=== PATIENT | male | born 1960 | race Native Hawaiian/Other Pacific Islander ===

== ENCOUNTER 2016-08-29 11:23 | Outpatient (CLI) | payer OTHER ==
[2016-08-29 11:59] LABS: POTASSIUM 4.6 mmol/L (3.6-5.2); SODIUM 133 mmol/L (136-145)
[2016-08-29 12:07] LABS: PLATELET COUNT 246 K/uL (142-355)
== END 2016-08-29 21:28 | disposition home or self-care (01) ==
LOC: LABW 11:23 → CT 11:23 → LABW 21:28
PROVIDERS: Internal Medicine
DX: R91.1 Solitary pulmonary nodule (principal)
CPT/HCPCS: 36415; 80053; 85027; Q9963

== ENCOUNTER 2016-12-30 15:34 | Outpatient (CLI) | payer OTHER | END 2016-12-30 19:25 | disposition home or self-care (01) | LOC: US 15:34 | DX: M79.89 Other specified soft tissue disorders (principal) ==

== ENCOUNTER 2017-09-15 14:53 | Outpatient (CLI) | payer OTHER | END 2017-09-15 21:15 | disposition home or self-care (01) | LOC: MRI 14:53 | DX: G44.85 Primary stabbing headache (principal) ==

== ENCOUNTER 2017-10-01 10:54 | Outpatient (CLI) | payer OTHER | END 2017-10-01 19:22 | disposition home or self-care (01) | LOC: RAD 10:54 | DX: R05 Cough (principal) ==

== ENCOUNTER 2018-12-24 11:13 | Outpatient (CLI) | payer OTHER ==
[2018-12-24 12:15] LABS: PLATELET COUNT 240 K/uL (142-355)
[2018-12-24 12:39] LABS: POTASSIUM 5.1 mmol/L (3.6-5.2)
== END 2018-12-24 23:10 | disposition home or self-care (01) ==
LOC: LAB 11:13
PROVIDERS: Physician Assistant
DX: Z00.00 Encounter for general adult medical examination without abnormal findings (principal); R91.1 Solitary pulmonary nodule
CPT/HCPCS: 80053; 80061; 82306; 83036; 84153; 84402; 84403; 84439; 84443; 85027

== ENCOUNTER 2019-04-26 10:05 | Observation (INO) | payer OTHER ==
[2019-04-26] VITALS: BP 122/77; TEMP 98.9
[~2019-04-26] VITALS: Ht 172.7 cm; Wt 79.9 kg
[2019-04-26 11:45] LABS: PLATELET COUNT 223 K/uL (142-355)
[2019-04-26 12:00] VITALS: BP 132/83; TEMP 98.3
[2019-04-26 12:00] LABS: POTASSIUM 4.3 mmol/L (3.6-5.2); SODIUM 141 mmol/L (136-145)
[2019-04-26 12:25] VITALS: BP 132/83; TEMP 98.3; Ht 172.7 cm; Wt 79.9 kg
[2019-04-26 16:00] VITALS: BP 139/90; TEMP 97.7
[2019-04-26 20:00] VITALS: BP 131/78; TEMP 98.2
[2019-04-27] VITALS: BP 122/77; TEMP 98.9
[2019-04-27 03:57] VITALS: BP 134/76; TEMP 97.6
[2019-04-27 08:00] VITALS: BP 116/75; TEMP 97.6
== END 2019-04-27 11:10 | disposition home or self-care (01) ==
LOC: MED/SURG 10:05
PROVIDERS: ADMIT Internal Medicine
DX: R07.89 Other chest pain (principal); R10.31 Right lower quadrant pain
CPT/HCPCS: 36415; 80053; 81000; 82150; 82550; 83690; 83880; 84484; 85027; 85379; 93005; 96365; 96366; 99220; G0378; G0379; Q9963

== ENCOUNTER 2019-09-23 10:19 | Outpatient (CLI) | payer OTHER ==
[2019-09-23 10:41] LABS: PLATELET COUNT 258 K/uL (142-355)
[2019-09-23 10:50] LABS: POTASSIUM 4.7 mmol/L (3.6-5.2)
== END 2019-09-23 19:37 | disposition home or self-care (01) ==
LOC: RAD 10:19
PROVIDERS: Internal Medicine
DX: J40 Bronchitis, not specified as acute or chronic (principal)
CPT/HCPCS: 36415; 80053; 85027

== ENCOUNTER 2021-08-30 10:24 | Outpatient (CLI) | payer OTHER | END 2021-08-30 19:09 | disposition home or self-care (01) | LOC: RAD 10:24 | PROVIDERS: ATTEND Internal Medicine | DX: U07.1 COVID-19 (principal); R05.9 Cough, unspecified ==